=== PATIENT | female | born 1990 | race Caucasian/White ===

== ENCOUNTER 2018-08-08 22:43 | Emergency (ER) | payer BC, SELFPAY ==
[2018-08-08 22:49] VITALS: BP 135/83; PULSE 69; RESP 14; TEMP 36.8; O2SAT 97; BMI 30.2
--- NOTE | 2018-08-08 22:54 | PC.NURSE ---
pt has tampon left in. Sts she put it in yesterday and cannot get it out. Says she thinks she feels the string but cant get it out. Denies ABD pain.
--- NOTE | 2018-08-08 22:56 | ED.SKABFB ---
HPI - Skin/Abscess/Foreign Bdy General Chief complaint: Skin/Abscess/Foreign Body Stated complaint: abdominal pain Time Seen by Provider: 08/08/18 22:56 Source: patient Mode of arrival: ambulatory Limitations: no limitations History of Present Illness HPI narrative: Patient is a 27-year-old female here for evaluation because she thinks that her tampon is stuck in her vagina. She states that she placed a tampon yesterday. She was unable to remove it today. Unable to feel the strings today. She does state she has some lower abdominal pain and headache. Related Data Previous Rx's Medication Instructions Recorded albuterol sulfate HFA 90 1 puff INHALATION Q4HP PRN #1 each 11/26/17 mcg/actuation aerosol inhaler fluticasone propionate 44 1 inhalation INHALATION BID #10.6 04/08/18 mcg/actuation HFA aerosol inhaler gram Allergies Allergy/AdvReac Type Severity Reaction Status Date / Time acetaminophen [From NYQUIL] Allergy Unknown Verified 05/13/18 09:02 azithromycin [From ZITHROMAX] Allergy Unknown Verified 05/13/18 09:02 dextromethorphan Allergy Unknown Verified 05/13/18 09:02 [From NYQUIL] doxylamine [From NYQUIL] Allergy Unknown Verified 05/13/18 09:02 pseudoephedrine [From NYQUIL] Allergy Unknown Verified 05/13/18 09:02 prednisone AdvReac Severe Tachycardia, Verified 05/13/18 09:02 On edge, Shaky BIRTHCONTROL Allergy Unknown Uncoded 05/13/18 09:02 Review of Systems Constitutional Reports headache(s) ENT Ears, Nose, Mouth, and Throat: Reports headache(s) Cardiovascular Denies chest pain and Denies dyspnea Respiratory Denies dyspnea Gastrointestinal Gastrointestinal: Reports abdominal pain Genitourinary Comments: Tampon stuck Neurologic Reports headache(s) [facility] Medical History Anxiety (Chronic) PTSD (post-traumatic stress disorder) (Chronic) Social History marital status: unmarried,living together household members: significant other lives independently: Yes caregiver/support person: No housing: apartment pets and animals: Yes education level: high school Smoking Status: Never smoker second hand exposure: No alcohol intake: never substance use type: does not use Exam Initial Vital Signs Initial Vital Signs: Vital Signs Temperature 98.2 F 08/08/18 22:49 Pulse Rate 69 08/08/18 22:49 Respiratory Rate 14 08/08/18 22:49 Blood Pressure 135/83 08/08/18 22:49 Pulse Oximetry 97 08/08/18 22:49 Const General: cooperative, well developed, well groomed and No acute distress Orientation: alert, awake and oriented x3 GI Inspection: non-distended Palpation: soft and No tender Other: Performed a pelvic exam and could not find any tampon in the vaginal vault. There was a small amount of blood around the cervix. Bimanual exam also does not reveal any temp of. Skin Lesions: no lesions Rashes: no rashes Neuro General: alert and awake Course Vital Signs - 8 hr 08/08/18 22:49 Temperature 98.2 F Pulse Rate 69 Respiratory Rate 14 Blood Pressure 135/83 Pulse Oximetry 97 MDM - Skin/Abscess/Foreign Bdy MDM Narrative Medical decision making narrative: No tampon felt under direct visualization or direct palpation in the vagina. Patient was given return precautions follow-up instructions. She expressed understanding and agreement plan. Discharge Plan Departure Patient Disposition: Home Clinical Impression: Vaginal bleeding Discharge Date/Time: 08/08/18 23:13 Interventions: ED Discharge Assessment Last Done: 08/08/18 23:12 Activity Restrictions/Additional Instructions: There was no tampon seen on the exam today. Return to the emergency department if you start develop worsening pain or fevers. Prescriptions: No Action albuterol sulfate [Ventolin HFA] 90 mcg/actuation HFA aerosol inhaler 1 puff INHALATION Q4HP PRN (Reason: wheezing) Qty: 1 RF: 2 fluticasone propionate 44 mcg/actuation HFA aerosol inhaler 1 inhalation INHALATION BID Qty: 10.6 RF: 0 Referrals: Carrie Fernandez MD [Primary Care Provider] -
== END 2018-08-08 23:13 | disposition home or self-care (01) ==
LOC: ED 23:15
PROVIDERS: Emergency Provider Emergency Medicine; Family Provider Family Medicine; PCP Family Medicine
DX: N93.9 Abnormal uterine and vaginal bleeding, unspecified (principal)
CPT/HCPCS: 99282